=== PATIENT | female | born 1995 | race Two or more races ===

== ENCOUNTER 2020-11-10 13:00 | Observation (INO) | payer MEDICAID, OTHER ==
[2020-11-10] MEDS ORDERED: PREN1TAB71 OR (15:30)
== END 2020-11-10 20:01 | disposition home or self-care (01) ==
LOC: LDRP 13:00
PROVIDERS: ADMIT Obstetrics & Gynecology; ATTEND Obstetrics & Gynecology
DX: O36.8130 Decreased fetal movements, third trimester, not applicable or unspecified (principal); Z3A.31 31 weeks gestation of pregnancy; Z88.0 Allergy status to penicillin
CPT/HCPCS: 59025; 76818; 81002; 84112; G0378; Q0114

== ENCOUNTER 2020-11-13 09:09 | Observation (INO) | payer MEDICAID ==
[~2020-11-13 09:09] MED LIST: PREN1TAB71 OR
== END 2020-11-13 16:20 | disposition home or self-care (01) ==
LOC: LDRP 15:27
PROVIDERS: ADMIT Obstetrics & Gynecology; ATTEND Obstetrics & Gynecology
DX: O36.8130 Decreased fetal movements, third trimester, not applicable or unspecified (principal); Z3A.31 31 weeks gestation of pregnancy
CPT/HCPCS: 59025; 76818; 81002; 94760; G0378; G0379

== ENCOUNTER 2020-12-20 16:16 | Observation (INO) | payer MEDICAID ==
[~2020-12-20] VITALS: Ht 160 cm; Wt 99.3 kg
== END 2020-12-20 19:08 | disposition home or self-care (01) ==
LOC: LDRP 16:16
PROVIDERS: ADMIT Obstetrics & Gynecology; ATTEND Obstetrics & Gynecology
DX: O62.9 Abnormality of forces of labor, unspecified (principal); O42.913 Preterm premature rupture of membranes, unspecified as to length of time between rupture and onset of labor, third trimester; O26.893 Other specified pregnancy related conditions, third trimester; R51.9 Headache, unspecified; Z3A.36 36 weeks gestation of pregnancy
CPT/HCPCS: 59025; 81002; 84112; 94760; G0378; Q0114